=== PATIENT | male | born 2005 | race Caucasian/White ===

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

== ENCOUNTER 2024-04-23 20:51 | Emergency (ER) | payer OTHER, SELFPAY ==
--- NOTE | ~2024-04-23 | US_ITS ---
EXAMINATION: US scrotum doppler DATE: 04/23/2024 22:09 INDICATION: Left testicular mass. TECHNIQUE: Grayscale and Doppler ultrasound images of the testes were obtained. COMPARISON: CT abdomen and pelvis 11/25/21 FINDINGS: The right testis measures 4.6 x 2.7 x 3.4 cm. The left testis measures 2.8 x 2.0 x 2.7 cm. There is normal vascular flow to both testes. The right epididymis is normal with normal vascular pedro w. The left epididymis is not visualized. There is a small left hydrocele. There is a left inguinal h ernia containing fat. IMPRESSION: 1. Small left testis. 2. Small left hydrocele. 3. Left inguinal hernia containing fat. Reviewed, dictated and finalized at location A.
[2024-04-23 20:54] VITALS: BP 146/103; PULSE 83; RESP 14; TEMP 36.4; O2SAT 100
[2024-04-23 21:04] VITALS: BP 156/102; PULSE 110; RESP 20; O2SAT 100
--- NOTE | 2024-04-23 21:07 | ED.GENADULT ---
[facility] - General Adult General Chief complaint: Unspecified Stated complaint: groin pain Time Seen by Provider: 04/23/24 20:57 History of Present Illness HPI narrative: 18-year-old male who was previously healthy presenting to the emergency department with left inguinal pain and left groin pain and swelling. Patient states he has a known left-sided inguinal hernia and thinks this could be related to that. This cover the hernia during his previous appendectomy where he had a CT scan that showed a large left-sided inguinal hernia. Was not causing him symptoms at that time and this was several years prior. He states for last 6 or so months he has been having intermittent pain in his left groin and swelling in his left testicle. Pain got worse today at work but slowly improve prior to arrival to the emergency department and presently is pain free without any nausea or vomiting. Normal bowel movements without any constipation. No fever, chills, pain is well controlled without any interventions. mass is easily reducible with pressure, gets larger with intrathoracic pressure such as bearing down or using the restroom. Related Data Home Medications Medication Instructions Recorded Confirmed cetirizine 10 mg tablet (24Hour 10 mg PO DAILY PRN ALLERGIES 11/25/21 12/07/21 Allergy) fluticasone propionate 50 1 spray intranasal DAILY PRN 11/25/21 12/07/21 mcg/actuation nasal Allergy Symptoms spray,suspension Allergies Allergy/AdvReac Type Severity Reaction Status Date / Time No Known Allergies Allergy Mild Verified 12/03/21 09:56 Review of Systems Review of Systems: As reviewed above in HPI [facility] Past Medical History Medical History Appendicitis Surgical History Surgical History History of appendectomy 11/25/21 Exam Narrative: GENERAL: [Well-appearing, well-nourished, and in no acute distress.] HEAD: [Normocephalic, atraumatic.] EYES: [PERRLA and EOMI.] ENT: Nares clear, no rhinorrhea or epistaxis. Mucous membranes moist. NECK: Supple. CHEST: [Clear to auscultation. No respiratory distress.] HEART: [Regular rate and rhythm]. No murmur heard. [Normal peripheral pulses.] ABDOMEN: [Soft, nondistended], [nontender], [No rigidity or guarding] tested examination shows asymmetry with left-sided the testicle larger than the right with a palpable mass, is reducible with pressure, inguinal masses appreciated. No overlying skin changes identified, no significant pain or irregularity to the testicle Itself, EXTREMITIES: Normal range of motion. [No edema.] SKIN: Warm, dry, no rash. NEURO: [No focal deficits]. Alert and oriented [x3.] PSYCH: [Normal mood and affect.] Course Vital Signs Vital signs: Vital Signs Temperature 36.4 C 04/23/24 20:54 Pulse Rate 83 04/23/24 20:54 Respiratory Rate 14 04/23/24 20:54 Blood Pressure 146/103 H 04/23/24 20:54 Pulse Oximetry 100 04/23/24 20:54 Oxygen Delivery Room Air 04/23/24 20:54 Temperature 36.4 C 04/23/24 20:54 Pulse Rate 110 H 04/23/24 21:04 Respiratory Rate 20 04/23/24 21:04 Blood Pressure 156/102 H 04/23/24 21:04 Pulse Oximetry 100 04/23/24 21:04 Oxygen Delivery Room Air 04/23/24 20:54 Medical Decision Making MDM Narrative Medical decision making narrative: 18-year-old previously healthy male presenting with left-sided groin pain and left-sided testicular pain. He states he feels like he has a hernia on the left side was noted to have a left-sided hernia during his appendectomy several years ago. He is having intermittent pain for last 6 months which resolves with time in direct pressure. Mass is easily reducible. States that the pain got worse today while at work. On clinical examination she does have asymmetry to his testicles with left-sided mass that is somewhat reducible with direct p
[2024-04-23 21:15] LABS: Basophils Absolute Auto 0.1 K/mm3 (0.0-0.1); Basophils Percent Auto 0.8 % (0.2-1.2); Eosinophils Percent Auto 0.2 % (0-4.4); Hematocrit 45.6 % (42.0-52.0); Hemoglobin 16.1 g/dL (14.0-18.0); Immature Granulocyte Absolute 0.03 K/mm3 (0.00-0.031); Immature Granulocyte Percent A 0.3 % (0-0.5); Lymphocytes Absolute Auto 1.68 K/mm3 (0.9-3.2); Lymphocytes Percent Auto 14.3 % (18.3-44.2); Mean Corpuscular HGB Conc 35.3 g/dl (32-36); Mean Corpuscular Hemoglobin 29.2 pg (26-34); Mean Corpuscular Volume 82.8 fl (80-100); Mean Platelet Volume 8.3 fl (7.4-10.4); Monocytes Absolute Auto 0.7 K/mm3 (0.1-0.6); Monocytes Percent Auto 6.1 % (2.6-8.5); Neutrophils Absolute Auto 9.2 K/mm3 (1.3-6.7); Neutrophils Percent Auto 78.3 % (45.5-73.1); Platelet Count Result 364 k/mm3 (150-375); Red Blood Count 5.51 M/mm3 (4.6-6.20); Red Cell Distribution Width 11.6 % (11.5-14.5); White Blood Count 11.7 K/mm3 (4.5-10.0)
[2024-04-23 21:26] LABS: Alanine Aminotransferase 26 U/L (6-50); Albumin Level 5.3 g/dL (3.7-5.6); Alkaline Phosphatase 85 U/L (58-237); Anion Gap 15 mmol/L (4-12); Aspartate Amino Transferase 25 U/L (17-59); Bilirubin,Total 1.3 mg/dL (0.2-1.3); Blood Urea Nitrogen 13 mg/dL (8-21); Calcium 10.1 mg/dL (8.9-10.7); Carbon Dioxide 25 mmol/L (22-30); Chloride 99 mmol/L (98-107); Estimated CRCL calculation 111 ml/min; Estimated Glomerular Filt Rate > 60; Glucose 96 mg/dL (65-110); Lipase 58 U/L (23-300); Magnesium 1.9 mg/dL (1.6-2.3); Potassium 3.5 mmol/L (3.4-5.0); Sodium 139 mmol/L (134-143)
[2024-04-23 21:27] LABS: Lactic Acid Reflex 1.2 mmol/L (0.7-2.0)
== END 2024-04-23 22:43 | disposition home or self-care (01) ==
PROVIDERS: Emergency Provider Student in an Organized Health Care Education/Training Program; PCP Pediatrics
DX: K40.90 Unilateral inguinal hernia, without obstruction or gangrene, not specified as recurrent (principal); N43.3 Hydrocele, unspecified
CPT/HCPCS: 36415; 76870; 80053; 83605; 83690; 83735; 85025; 93976; 99284

== ENCOUNTER 2024-06-13 09:31 | Outpatient (CLI) | payer OTHER, SELFPAY | END 2024-06-13 09:32 | disposition home or self-care (01) | LOC: ANHSURGERY 09:35 | PROVIDERS: PCP Pediatrics; Visit Provider Surgery | DX: Z01.818 Encounter for other preprocedural examination (principal); K40.90 Unilateral inguinal hernia, without obstruction or gangrene, not specified as recurrent | CPT/HCPCS: 36415; 86850; 86900; 86901 ==

== ENCOUNTER 2024-06-18 01:17 | Day surgery (SDC) | payer OTHER, SELFPAY ==
[2024-06-05 11:27] VITALS: BMI 19.5
--- NOTE | 2024-06-05 11:32 | PC.NURSE ---
Report to the Outpatient Waiting Room, entrance under the green pavilion located off [facility], at time _0800_ on date _[id number]_. Planned Procedure Time: _1000_.? Time changes happen often and if your time is changed the preop area will call you the afternoon before. - You and your visitor will be asked to self-screen and do not enter if you have any COVID symptoms. Please call surgeon if you need to reschedule. - A mask is optional within the hospital at this time. Patients may have clear liquids (water, carbonated beverages, clear teas, apple juice) until 3 hours prior to surgery with a maximum of 20 ounces. - No food from midnight until time of surgery and no smoking. This includes no chewing gum, candy or mints. Take only the following medications with a SIP of water on the morning of surgery: ___None DO NOT STOP ANY OF YOUR OTHER PRESCRIPTION MEDICATIONS PRIOR TO SURGERY EXCEPT THE FOLLOWING Medications to discontinue per physician None Please no make-up, nail hungarian, hairspray, perfume, deodorant, or body powder the day of surgery.? No jewelry (including any body piercings) or valuables the day of surgery, leave them at home.? Please take a shower or bath the night before, or the morning of, surgery with an antibacterial soap.? Wear comfortable, loose fitting clothing.? . - Jewelry must be removed prior to entering the operating room.? Rings and piercings that are not removed may be cut off. - The hospital will not accept responsibility for valuables.? - Please leave all valuables, including medications, at home the day of surgery. If you are going home after surgery, a licensed compressed air pile driver operator must drive you home.? - NO public transportation without another adult if you receive anesthesia. - We recommend that an adult stay with you for 24 hours following discharge. - We also recommend that you do not drive, make important decision, drink alcoholic beverages, or take any drugs that were not prescribed by your health care provider for at least 24 hours after your discharge time. Follow any additional instructions given to you from your surgeon. Telephone instructions given to __Ben__and asked if any additional questions and then verbalized understanding. Patient advised to call surgeon office or pre surgery nurse liaison [phone] if any additional questions.
[2024-06-18] VITALS (9 sets, daily range): BP systolic 118–142; BP diastolic 66–85; PULSE 52–66; RESP 12–14; TEMP 36–36.6; O2SAT 99–100
--- NOTE | 2024-06-18 07:27 | PM.IMHP ---
H&P: HPI History of Present Illness Date/Time: 06/18/24 07:27 Chief Complaint: left inguinal hernia Narrative: Joel is a 18 y/o male who returns to the office for evaluation of a left inguinal hernia. Patient has been aware of this hernia for a few years. It was noted prior to his previous laparoscopic appendectomy by Dr. Vila in 2021. Patient was recent seen at ED on 04/23/24. He states for last 6 months he has been having intermittent pain in his left groin/swelling in his left testicle. Scrotal ultrasound on 04/23/24 showed a left inguinal hernia containing fat. He states the hernia is reducible. He denies any issues with urinating or with BM's. Review of Systems Review of Systems: All systems reviewed & are unremarkable except as noted in HPI and below PMFSH Past Medical History Medical History Appendicitis Surgical History Surgical History History of appendectomy 11/25/21 Dr. Vila Social History Social History Smoking status: Never smoker Living arrangements: with family Spiritual care concerns: No Meds Home Medications and Allergies Home Medications Medication Instructions Recorded Confirmed Type cetirizine 10 mg tablet (24Hour 10 mg PO DAILY PRN ALLERGIES 11/25/21 06/05/24 History Allergy) Allergies Allergy/AdvReac Type Severity Reaction Status Date / Time No Known Allergies Allergy Mild Verified 06/05/24 11:26 Exam Const: General: cooperative, comfortable and no acute distress Resp: Auscultation: clear to auscultation bilaterally Cardio: Rate: regular rate Rhythm: regular rhythm GI: Inspection: normal to inspection, non-distended and visible herniation GI Palp: No abdominal tenderness, Yes Soft to palpation, No Tenderness to palpation present (GI) and Yes Hernia present Other: moderate-sized, reducible left inguinal hernia Assessment and Plan Assessment and plan (1) Left inguinal hernia: Code(s): K40.90 - Unilateral inguinal hernia, without obstruction or gangrene, not specified as recurrent Status: Acute Assessment and Plan: will set up for robotic assisted left inguinal hernia repair with mesh
--- NOTE | 2024-06-18 07:28 | WPDHPUPDATE1 ---
History and Physical Update Update Date/Time: 06/18/24 07:28 History and Physical has been reviewed, including an updated exam of the patient. There are NO changes in the patient's condition. Risks, benefits, and alternatives have been discussed and questions answered. Patient agrees to proceed with procedure.
[2024-06-18] MEDS: LACTATED RINGERS 1,000 ML 30 ML IV CONT ×3 (08:30→12:30)
[2024-06-18] MEDS: ACETAMINOPHEN 500 MG TABLET 1000 MG PO (08:30)
[2024-06-18] MEDS: KETOROLAC 15 MG/ML VIAL (*BKC) IV PUSH ×2 (08:30→12:36)
--- NOTE | 2024-06-18 08:57 | WPDANESEPPF ---
Anes - Initial Pre Proc Eval Procedure: Operation Date: 06/18/24 10:00 Proposed Procedures p Robotic Assisted Left Inguinal Hernia Repair with Mesh - Katerin Roy MD Date/Time: 06/18/24 08:57 Surgeon: Katerin Roy MD Pre Op Diagnosis: left inguinal hernia Patient Data Age: 18 Gender: M Height: 1.8 m Weight: 64.7 kg Last Vital Signs Temp 96.8 F L 06/18/24 08:30 Pulse 59 L 06/18/24 08:30 Resp 14 06/18/24 08:30 BP 142/85 H 06/18/24 08:30 Pulse Ox 100 06/18/24 08:30 O2 Del Method Room Air 06/18/24 08:30 Allergies Allergy/AdvReac Type Severity Reaction Status Date / Time No Known Allergies Allergy Mild Verified 06/18/24 08:52 Home Medications Medication Instructions Recorded Confirmed Type cetirizine 10 mg tablet (24Hour 10 mg PO DAILY PRN ALLERGIES 11/25/21 06/05/24 History Allergy) Patient hx anesthesia problems: none Family hx anesthesia problems: none Results Review: All pre-operative results and documents have been reviewed as part of the pre-operative evaluation. [facility] Past Medical History Medical History Appendicitis Surgical History Surgical History History of appendectomy 11/25/21 Dr. Vila Social History Social History Smoking status: Never smoker Living arrangements: with family Spiritual care concerns: No Anes - Eval Final PreProcedure Day of Procedure 06/18/24 08:57 Patient weight: normal Heart: regular rate and rhythm Lungs: clear to auscultation Airway: Mallampati scale class II Neurological: alert and oriented Last oral intake: >/= 8 hours ASA classification: I Emergent: no Anesthetic plan: proceed Anesthesia type and monitoring: general ETT and standard monitoring Results Review: All pre-operative results and documents have been reviewed as part of the pre-operative evaluation. Informed Consent: The patient's anesthetic plan and its attendant risks and benefits were discussed with the patient/family/POA. Questions were solicited and answers provided to the satisfaction of the patient/family/POA.
[2024-06-18] MEDS: ceFAZolin 2 GM/D5W 50 ML 2 GM/50 ML BAG IVPB (09:30)
[2024-06-18] MEDS: BUPIVACAINE/EPINEPHRINE 0.5% 50 ML VIAL 30 ML INFILTRATE (09:58)
--- NOTE | 2024-06-18 10:57 | W.PM.PROC2 ---
Procedure Note - Detailed Date of Procedure 06/18/24 Pre-op Diagnosis left inguinal hernia Post-op Diagnosis Same Procedure Performed robotic assisted left inguinal hernia repair with mesh Surgeon Katerin Roy MD Anesthesia General Indications 18 y/o M c LIH and worsening groin pain over last few months Findings indirect left inguinal hernia Description of Procedure Patient was brought into the operating room and placed in the supine position. After adequate induction of general anesthesia, the patient was prepped and draped in normal sterile fashion. A time-out was then done to verify the patient's identity, as well as the procedure being performed. I began by making a 8 mm incision in the supraumbilical region, a Veress needle was then placed into the peritoneal cavity. CO2 gas was then insufflated and after adequate pneumoperitoneum was achieved, the Veress needle was removed. I then placed an 8 mm trocar through this incision. I then placed the endoscope through this trocar site and under direct visualization placed 2 further 8 mm ports in the right and left mid abdomen. The [employer]i robot was then docked to the 3 trocar sites. I then scrubbed out and went to the robotic console. Upon examining the pelvis, it was noted that the patient had a moderate left inguinal hernia. The right side was examined and no hernia defect was noted. I began by making a preperitoneal flap approximately 6 cm superior to the defect. This flap was carried medially past the umbilical ligaments and laterally to the transversalis. It then began dissection of my medial compartment taking this down to the pubic tubercle. I then began the lateral dissection taking this down to the transversalis fascia. Once these compartments were achieved, I began dissection around the cord structures. A moderate sized indirect hernia was noted at this point. Using careful dissection, was able to reduce indirect hernia sac off the cord structures. Once this was adequately done, I went ahead and placed a large piece of 3D Max mesh into the abdominal cavity. The mesh was carefully positioned, centering the center of the mesh over the indirect defect. Once this was done, was very satisfied with our repair. Using 3-0 Vicryl sutures, I tacked the mesh medially to Kt's ligament. Two lateral sutures were placed from the mesh to the transversalis fascia. I then closed the peritoneal flap with a running 2.0 V Lock suture. The abdomen was then desufflated, and all ports were removed. All incisions were then closed with the 4.0 monocryl suture. Dermabond was placed on each wound. The patient tolerated the procedure well, was extubated in the operating room postoperatively, and will now be transferred to the recovery room in stable condition. Implants large 3DMax mesh Estimated Blood Loss 10 Drains No Packing No Pathology None sent Complications No immediate complications Condition Stable Disposition PACU [facility] Billing Surgery - Charge Forward: Surgery Billing
== END 2024-06-18 13:25 | disposition home or self-care (01) ==
PROVIDERS: PCP Pediatrics; Visit Provider Surgery
PROC: 8E0Y4CZ Robotic Assisted Procedure of Lower Extremity, Percutaneous Endoscopic Approach (ICD-10-PCS; CPT 49650; principal; 2024-06-18 10:00)
DX: K40.90 Unilateral inguinal hernia, without obstruction or gangrene, not specified as recurrent (principal); Z98.890 Other specified postprocedural states
CPT/HCPCS: 49650; S2900; A9270; C1781; J0690; J1100; J1171; J1596; J1885; J2003; J2250; J2405; J2704; J3010; J7120